=== PATIENT | female | born 1955 | race Caucasian/White ===

== ENCOUNTER → 2020-10-29 | Outpatient (CLI) | payer MEDICARE | LOC: CATH 10:00 | DX: R55 Syncope and collapse (principal) ==

== ENCOUNTER 2021-12-01 15:06 | Inpatient (IN) | payer MEDICARE ==
[~2021-12-01] VITALS: Ht 162.6 cm; Wt 70.8 kg
[2021-12-01 16:26] LABS: HEMOGLOBIN 16.3 gm/dl (12.3-15.3); RED BLOOD COUNT 4.9 M/UL (4.00-5.10); WHITE BLOOD COUNT 12.7 K/UL (4.5-11.0)
[2021-12-01 16:38] LABS: BUN/CREATININE RATIO 27 (0-10)
[2021-12-02 03:50] LABS: HEMOGLOBIN 14.9 gm/dl (12.3-15.3); RED BLOOD COUNT 4.52 M/UL (4.00-5.10)
[2021-12-02 04:12] LABS: BUN/CREATININE RATIO 28 (0-10)
[2021-12-02] MEDS ORDERED: NP THYROID60 MG PO (09:23)
[2021-12-02] MEDS ORDERED: THERA-TABS1 EACH PO (09:24)
[2021-12-02] MEDS ORDERED: LACTINEX TABLET1 EA PO (09:25)
[2021-12-02] MEDS ORDERED: VITAMIN D210 MCG PO (09:26)
[2021-12-02] MEDS ORDERED: LEVOFLOXACIN500 MG PO (16:21)
[2021-12-02] MEDS ORDERED: HYDROCODON-ACE1 EAC4 PO (16:21)
[2021-12-03 06:07] LABS: BUN/CREATININE RATIO 28 (0-10)
[2021-12-03 06:23] LABS: HEMOGLOBIN 15.5 gm/dl (12.3-15.3); RED BLOOD COUNT 4.71 M/UL (4.00-5.10); WHITE BLOOD COUNT 10.8 K/UL (4.5-11.0)
--- NOTE | 2021-12-03 09:58 | NUR ---
PATIENT HAS SPOKEN TO BOTH PHYSICIANS OF CASE AND HAS BEEN EDUCATED ON HOME CARE FOR NEW PACEMAKER AND HER NEW MEDICATION. PATIENT WAS RECIEVING OF INFORMATION AND EXPRESSED UNDERSTANDING. DISCHARGE INSTRUCTION COPIES AND PACKET HAS BEEN GIVEN TO THE PATIENT. PATIENT WILL BE PICKING HER UP FROM THE FACILITY AND TRANSPORT HOME.
== END 2021-12-03 11:30 | disposition home or self-care (01) | DRG 244 ==
LOC: ER1 15:06 → CCU 18:46 → CDU 18:46 → CCU 12-02 09:11
PROVIDERS: Student in an Organized Health Care Education/Training Program; ADMIT Internal Medicine
PROC: 0JH606Z Insertion of Pacemaker, Dual Chamber into Chest Subcutaneous Tissue and Fascia, Open Approach (ICD-10-PCS; principal; 2021-12-02)
PROC: 02H63JZ Insertion of Pacemaker Lead into Right Atrium, Percutaneous Approach (ICD-10-PCS; 2021-12-02)
PROC: 02HK3JZ Insertion of Pacemaker Lead into Right Ventricle, Percutaneous Approach (ICD-10-PCS; 2021-12-02)
PROC: B24BZZZ Ultrasonography of Heart with Aorta (ICD-10-PCS; 2021-12-02)
DX: R00.1 Bradycardia, unspecified (principal); I44.1 Atrioventricular block, second degree; R55 Syncope and collapse; E03.9 Hypothyroidism, unspecified; Z20.822 Contact with and (suspected) exposure to COVID-19; I10 Essential (primary) hypertension; Z95.0 Presence of cardiac pacemaker; Z95.5 Presence of coronary angioplasty implant and graft; Z82.49 Family history of ischemic heart disease and other diseases of the circulatory system; Z84.89 Family history of other specified conditions; Z80.1 Family history of malignant neoplasm of trachea, bronchus and lung
CPT/HCPCS: ECHO; 33208; 71045; 80048; 80053; 80061; 82550; 82553; 83735; 84439; 84443; 84484; 85025; 93005; 93306; 96374; 96376; 99152; 99153; 99285; C1785; C1898; G0378; J0360; J1644; J2250; J3010; J3370; J7040; J7050; J7070; U0002

== ENCOUNTER → 2022-04-15 | Outpatient (CLI) | payer MEDICARE ==
[~2022-04-15] MED LIST: HYDROCODON-ACE1 EAC4 PO; LACTINEX TABLET1 EA PO; LEVOFLOXACIN500 MG PO; NP THYROID60 MG PO; THERA-TABS1 EACH PO; VITAMIN D210 MCG PO
== END ==
LOC: MAMO 02-12 13:00
DX: Z12.31 Encounter for screening mammogram for malignant neoplasm of breast (principal)
CPT/HCPCS: 77063; 77067